=== PATIENT | male | born 1950 | race Caucasian/White ===

== ENCOUNTER 2018-09-02 11:51 | Emergency (ER) | payer MEDICARE, OTHER, SELFPAY ==
[2018-09-02 12:01] VITALS: BP 134/86; PULSE 80; RESP 18; TEMP 37.1; O2SAT 97
--- NOTE | 2018-09-02 12:06 | DI.RAD.S_ITS ---
PROCEDURE: XR HIP W PEL IF DONE LT 2V INDICATIONS: atraumatic left hip pain. TECHNIQUE: 2 views of the hip were acquired. COMPARISON: None. FINDINGS: Bones: No fractures or dislocations. No suspicious bony lesions. The visualized pelvic ring appears intact. Postoperative changes are present related to bilateral hip arthroplasties. No periprosthetic fractures are evident. The hardware appears to be intact. There are severe degenerative changes of the lower lumbar spine. Soft tissues: No suspicious soft tissue calcifications or masses. Multiple surgical clips are seen within the pelvis. IMPRESSION: 1. No acute left hip fracture. 2. Status post bilateral hip arthroplasties. Dictated by: Saleem Neal M.D. on 09/02/2018 at 12:04 Approved by: Saleem Neal M.D. on 09/02/2018 at 12:06
--- NOTE | 2018-09-02 14:17 | ED.EXTPRO ---
HPI - Extremity Problem General Chief complaint: Extremity Problem,Nontraumatic Stated complaint: Lt hip pain Time Seen by Provider: 09/02/18 14:15 Source: patient Mode of arrival: ambulatory Limitations: no limitations History of Present Illness HPI Narrative: The patient the 68-year-old male who presents with left hip pain. He has had arthritic pain in the past. He has got a Toradol shot in the past also Medrol Dosepak. He does take Eliquis for atrial fibrillation. But he has had Toradol in the past without any issue. He currently is sitting in a chair comfortably without any significant pain. He denies any sciatic pain numbness tingling or weakness in his leg. He has no injury. He is visiting from [place] he will be going back into the end of the month. MD Complaint: extremity pain Onset (ago): day(s) (4) Pain Consistency: intermittent Location: left and lower extremity (hip) Related Data Previous Rx's Medication Instructions Recorded methylprednisolone [Medrol (Avery)] See Rx Instructions .ROUTE 09/02/18 .COMPLEX #21 each Allergies Allergy/AdvReac Type Severity Reaction Status Date / Time No Known Drug Allergies Allergy Verified 09/02/18 12:05 Review of Systems Review of Systems GENERAL: Denies chills,fever HEENT: Denies throat pain RESPIRATORY: Denies dyspnea, cough, wheezing CARDIOVASCULAR: Denies chest pain, palpitations GASTROINTESTINAL: Denies nausea, vomiting MUSCULOSKELETAL: See HPI SKIN: No rash, no laceration, no pruritus NEUROLOGIC: Denies weakness, dizziness, headache, numbness 8 point review of systems is negative except for those stated above and HPI [facility] Medical History (Updated 09/02/18 @ 14:32 by Laura Mercer DO) Atrial fibrillation (Acute) Social History (Updated 09/02/18 @ 14:30 by Laura Mercer DO) marital status: Smoking Status: Never smoker Social History (Updated 09/02/18 @ 14:30 by Laura Mercer DO) marital status: Smoking Status: Never smoker Comment: Visiting from out of state Exam Initial Vital Signs Initial Vital Signs: Vital Signs Temperature 98.8 F 09/02/18 12:01 Pulse Rate 80 09/02/18 12:01 Respiratory Rate 18 09/02/18 12:01 Blood Pressure 134/86 09/02/18 12:01 Pulse Oximetry 97 09/02/18 12:01 GENERAL: Pleasant well-appearing male CARDIOVASCULAR: peripheral pulses in tact, cap refill <2 sec RESPIRATORY: No respiratory distress, speaks in full sentences without difficulty EXTREMITIES: Normal range of motion, no clubbing or edema. Neurovascularly intact Left hip no pain with internal external rotation NEUROLOGICAL: Cranial nerves II through XII grossly intact. Normal gait and speech. SKIN: Warm, dry, no petechiae, no rashes or lesions. Course Orders Ordered: ED Orders 09/02/18 12:06 XR hip w pel if done LT 2V Stat Discontinued Medications Ketorolac Tromethamine (Toradol) 30 mg IM NOW ONE Stop: 09/02/18 14:28 Last Admin: 09/02/18 14:50 Dose: 30 mg Vital Signs - 8 hr 09/02/18 12:01 09/02/18 15:03 Temperature 98.8 F Pulse Rate 80 88 Respiratory Rate 18 19 Blood Pressure 134/86 123/86 Pulse Oximetry 97 96 MDM - Extremity (Nontraumatic) Imaging Data left hip: Radiologist's impression: [address] [address] XRay Report Signed Patient: Guzman Roger#: [id number] : 1950Acct:[id number] Age/Sex: 68 / MDate of Service: 09/02/18 Loc: ED Accession Number: [id number] Procedure: XR hip w pel if done LT 2V Ordering Provider: Laura Mercer D.O. PROCEDURE: XR HIP W PEL IF DONE LT 2V INDICATIONS: atraumatic left hip pain. TECHNIQUE: 2 views of the hip were acquired. COMPARISON: None. FINDINGS: Bones: No fractures or dislocations. No suspicious bony lesions. The visualized pelvic ring appears intact. Postoperative changes are present related to bilateral hip arthroplasties. No periprosthetic fractures are evident. The hardware appears to be intact. There are severe degenerative changes of the lower lumbar spine. Soft tissues: No suspicious soft tissue calcifications or masses. Multiple surgical clips are seen within the pelvis. IMPRESSION: 1. No acute left hip fracture. 2. Status post bilateral hip arthroplasties. Dictated by: Saleem Neal M.D. on 09/02/2018 at 12:04 Approved by: Saleem Neal M.D. on 09/02/2018 at 12:0 MDM Narrative Medical decision making narrative: The patient is not having much pain now. However he still wants Toradol shot. I recommend he hold off taking the Medrol Dosepak until he has worsening pain. Which she agrees to. Discharge Plan Departure Patient Disposition: Home Clinical Impression: Arthritis of left hip Discharge Date/Time: 09/02/18 15:04 Interventions: ED Discharge Assessment Last Done: 09/02/18 15:03 Instructions: DI for Arthritis Activity Restrictions/Additional Instructions: *You have been diagnosed with left hip arthritis *What to do: Increased weakness, pain *Continue to take medications as directed Medrol Dosepak take as directed only needed for pain *Follow up with your primary care provider in 2-3 days *Return to ER if you should have increasing leg weakness persistent numbness or tingling or any new, worsening or concerning symptoms Prescriptions: New methylprednisolone [Medrol ([place]very)] 4 mg tablets,dose pack See Rx Instructions .ROUTE .COMPLEX Qty: 21 RF: 0
--- NOTE | 2018-09-02 14:19 | PC.NURSE ---
Pt reports sharp intermittent pain to left hip. Does report history of Hip replacement. States pain started on Wednesday. And happens with sharp pain to anterior hip towards pelvic area. Denies any numbness tingling. States when pain starts has to sit down and then pain states to calms down with rest.
--- NOTE | 2018-09-02 14:32 | ED_ITS ---
HPI - Extremity Problem General Chief complaint: Extremity Problem,Nontraumatic Stated complaint: Lt hip pain Time Seen by Provider: 09/02/18 14:15 Source: patient Mode of arrival: ambulatory Limitations: no limitations History of Present Illness HPI Narrative: The patient the 68-year-old male who presents with left hip pain. He has had arthritic pain in the past. He has got a Toradol shot in the past also Medrol Dosepak. He does take Eliquis for atrial fibrillation. But he has had Toradol in the past without any issue. He currently is sitting in a chair comfortably without any significant pain. He denies any sciatic pain numbness tingling or weakness in his leg. He has no injury. He is visiting from [place] he will be going back into the end of the month. MD Complaint: extremity pain Onset (ago): day(s) (4) Pain Consistency: intermittent Location: left and lower extremity (hip) Related Data Previous Rx's Medication Instructions Recorded methylprednisolone [Medrol ([place])] See Rx Instructions .ROUTE 09/02/18 .COMPLEX #21 each Allergies Allergy/AdvReac Type Severity Reaction Status Date / Time No Known Drug Allergies Allergy Verified 09/02/18 12:05 Review of Systems Review of Systems GENERAL: Denies chills,fever HEENT: Denies throat pain RESPIRATORY: Denies dyspnea, cough, wheezing CARDIOVASCULAR: Denies chest pain, palpitations GASTROINTESTINAL: Denies nausea, vomiting MUSCULOSKELETAL: See HPI SKIN: No rash, no laceration, no pruritus NEUROLOGIC: Denies weakness, dizziness, headache, numbness 8 point review of systems is negative except for those stated above and HPI [facility] Medical History (Updated 09/02/18 @ 14:32 by Laura Mercer DO) Atrial fibrillation (Acute) Social History (Updated 09/02/18 @ 14:30 by Laura Mercer DO) marital status: Smoking Status: Never smoker Social History (Updated 09/02/18 @ 14:30 by Laura Mercer DO) marital status: Smoking Status: Never smoker Comment: Visiting from [place] of state Exam Initial Vital Signs Initial Vital Signs: Vital Signs Temperature 98.8 F 09/02/18 12:01 Pulse Rate 80 09/02/18 12:01 Respiratory Rate 18 09/02/18 12:01 Blood Pressure 134/86 09/02/18 12:01 Pulse Oximetry 97 09/02/18 12:01 GENERAL: Pleasant well-appearing male CARDIOVASCULAR: peripheral pulses in tact, cap refill <2 sec RESPIRATORY: No respiratory distress, speaks in full sentences without difficulty EXTREMITIES: Normal range of motion, no clubbing or edema. Neurovascularly intact Left hip no pain with internal external rotation NEUROLOGICAL: Cranial nerves II through XII grossly intact. Normal gait and speech. SKIN: Warm, dry, no petechiae, no rashes or lesions. Course Orders Ordered: ED Orders 09/02/18 12:06 XR hip w pel if done LT 2V Stat Discontinued Medications Ketorolac Tromethamine (Toradol) 30 mg IM NOW ONE Stop: 09/02/18 14:28 Last Admin: 09/02/18 14:50 Dose: 30 mg Vital Signs - 8 hr 09/02/18 12:01 09/02/18 15:03 Temperature 98.8 F Pulse Rate 80 88 Respiratory Rate 18 19 Blood Pressure 134/86 123/86 Pulse Oximetry 97 96 MDM - Extremity (Nontraumatic) Imaging Data left hip: Radiologist's impression: [address] [address] XRay Report Signed Patient: Guzman Roger#: [id number] : 1950Acct:[id number] Age/Sex: 68 / MDate of Service: 09/02/18 Loc: ED Accession Number: [id number] Procedure: XR hip w pel if done LT 2V Ordering Provider: Laura Mercer D.O. PROCEDURE: XR HIP W PEL IF DONE LT 2V INDICATIONS: atraumatic left hip pain. TECHNIQUE: 2 views of the hip were acquired. COMPARISON: None. FINDINGS: Bones: No fractures or dislocations. No suspicious bony lesions. The visualized pelvic ring appears intact. Postoperative changes are present related to bilateral hip arthroplasties. No periprosthetic fractures are evident. The hardware appears to be intact. There are severe degenerative changes of the lower lumbar spine. Soft tissues: No suspicious soft tissue calcifications or masses. Multiple surgical clips are seen within the pelvis. IMPRESSION: 1. No acute left hip fracture. 2. Status post bilateral hip arthroplasties. Dictated by: Saleem Neal M.D. on 09/02/2018 at 12:04 Approved by: Saleem Neal M.D. on 09/02/2018 at 12:0 MDM Narrative Medical decision making narrative: The patient is not having much pain now. However he still wants Toradol shot. I recommend he hold off taking the Medrol Dosepak until he has worsening pain. Which she agrees to. Discharge Plan Departure Patient Disposition: Home Clinical Impression: Arthritis of left hip Discharge Date/Time: 09/02/18 15:04 Interventions: ED Discharge Assessment Last Done: 09/02/18 15:03 Instructions: DI for Arthritis Activity Restrictions/Additional Instructions: *You have been diagnosed with left hip arthritis *What to do: Increased weakness, pain *Continue to take medications as directed Medrol Dosepak take as directed only needed for pain *Follow up with your primary care provider in 2-3 days *Return to ER if you should have increasing leg weakness persistent numbness or tingling or any new, worsening or concerning symptoms Prescriptions: New methylprednisolone [Medrol ([place])] 4 mg tablets,dose pack See Rx Instructions .ROUTE .COMPLEX Qty: 21 RF: 0
[2018-09-02] MEDS: KETOROLAC 60 MG/2 ML VIAL 30 MG IM (14:50)
[2018-09-02 15:03] VITALS: BP 123/86; PULSE 88; RESP 19; O2SAT 96
== END 2018-09-02 15:04 | disposition home or self-care (01) ==
PROVIDERS: Emergency Provider Emergency Medicine
DX: M16.12 Unilateral primary osteoarthritis, left hip (principal); Z79.01 Long term (current) use of anticoagulants
CPT/HCPCS: 73502; 96372; 99282; 99283; J1885

== ENCOUNTER 2018-09-03 10:54 | Emergency (ER) | payer MEDICARE, OTHER, SELFPAY ==
[2018-09-03 11:05] VITALS: BP 123/80; PULSE 80; RESP 15; TEMP 36.5; O2SAT 100
[2018-09-03 11:11] VITALS: BP 123/80; PULSE 80; RESP 15; TEMP 36.5; O2SAT 100; BMI 32.1
--- NOTE | 2018-09-03 11:55 | ED.EXTPRO ---
HPI - Extremity Problem General Chief complaint: Extremity Problem,Nontraumatic Stated complaint: Lt leg extreme pain Time Seen by Provider: 09/03/18 11:14 Source: patient Mode of arrival: ambulatory Limitations: no limitations History of Present Illness HPI Narrative: Male who presents for the 2nd time with left hip pain. He has bilateral hip replacements. He is on Eliquis for atrial fibrillation he has significant arthritis of his spine. He was seen here yesterday with got a shot of Toradol and a Medrol dose pack per his request. States that typically the Medrol Dosepak helps. He started that yesterday. He took a [place] last night due to the pain he does not have any more [place] left. He has been quite uncomfortable. The pain is fairly constant but definitely gets worse. He denies numbness or tingling. The pain is really on his anterior thigh. He denies any midline back pain no changes with bowel or bladder habits. He denies any fever no frequent or painful urination. This feels like previous flare ups. He does have pain management back in [place]. MD Complaint: extremity pain Related Data Previous Rx's Medication Instructions Recorded methylprednisolone [Medrol ([place])] See Rx Instructions .ROUTE 09/02/18 .COMPLEX #21 each hydrocodone-acetaminophen [Trent] 1 tab PO Q4-6H PRN #14 tab 09/03/18 Allergies Allergy/AdvReac Type Severity Reaction Status Date / Time No Known Drug Allergies Allergy Verified 09/02/18 12:05 Review of Systems Review of Systems GENERAL: Denies chills, fatigue, malaise, fever, sweats, travel HEENT: Denies sinus pain, ear pain, sore throat, difficulty swallowing, neck pain RESPIRATORY: Denies dyspnea, cough, wheezing, hemoptysis, sputum. CARDIOVASCULAR: Denies chest pain, palpitations, orthopnea, edema GASTROINTESTINAL: Denies nausea, vomiting, abdominal pain, diarrhea, constipation, melena. : Denies dysuria, frequency, incontinence, hematuria, urinary retention, flank pain. MUSCULOSKELETAL: See HPI SKIN: No rash, no erythema, no pruritus NEUROLOGIC: Denies weakness, dizziness, headache, numbness, change in speech, confusion PSYCHIATRIC: No concerning psychosocial issues. 12 point review of systems is negative except for those stated above and HPI [facility] Medical History Atrial fibrillation (Acute) Social History (Updated 09/02/18 @ 14:30 by Laura Mercer DO) marital status: Smoking Status: Never smoker Social History marital status: Smoking Status: Never smoker Exam Initial Vital Signs Initial Vital Signs: Vital Signs Temperature 97.7 F 09/03/18 11:05 Pulse Rate 80 09/03/18 11:05 Respiratory Rate 15 09/03/18 11:05 Blood Pressure 123/80 09/03/18 11:05 Pulse Oximetry 100 09/03/18 11:05 GENERAL: Well-appearing, well-nourished and in no acute distress. HEENT: Head atraumatic,EOMI, pupils reactive, CARDIOVASCULAR: Peripheral pulses intact. Femoral pulse on left side is felt and strong RESPIRATORY: Speaks in full sentences without any difficulty no respiratory distress BACK: No vertebral tenderness no step-off, pain seems to be anterior thigh good femoral pulses felt. Sensation in lower extremities intact EXTREMITIES: Normal range of motion, no clubbing or edema. Neurovascularly intact NEUROLOGICAL: Alert and oriented x4.Normal gait and speech. Cranial nerves II through XII grossly intact. SKIN: Warm, dry, no laceration, no petechiae, no rashes or lesions. Course Vital Signs - 8 hr 09/03/18 11:05 09/03/18 11:11 Temperature 97.7 F 97.7 F Pulse Rate 80 80 Respiratory Rate 15 15 Blood Pressure 123/80 Blood Pressure [Right Arm] 123/80 Pulse Oximetry 100 100 MDM - Extremity (Nontraumatic) MDM Narrative Medical decision making narrative: At this time this is patient's pain that he has always felt. It seems to be in the anterior thigh. He is able to flex and extend his hip easily. At this time I do not think he has a psoas abscess or hematoma. He gets obvious spasms. At this time I have agreed to give him some [place] medication. He was offered a shot of morphine which he declined. He is on a Medrol Dosepak. I recommend that he follow up with his physicians in [place]. Discharge Plan Departure Patient Disposition: Home Clinical Impression: Arthritis of left hip Discharge Date/Time: 09/03/18 12:23 Interventions: ED Discharge Assessment Last Done: 09/03/18 12:22 Instructions: DI for Arthritis Activity Restrictions/Additional Instructions: *You have been diagnosed with all left hip pain, arthritis *What to do: Recommend that you follow up with your orthopedic surgeons in [place]. *Continue to take medications as directed [place] 1 tablet every 4 hours or 2 tablets every 6 hours *Follow up with your primary care provider in 2-3 days *Return to ER if you should have numbness tingling weakness in leg fever or any new, worsening or concerning symptoms CONTROLLED SUBSTANCE DISCHARGE (Narcotoic/benzodiazepine/Flexeril/Phenergan) 1. You have been prescribed narcotic medications, it does have acetaminophen/Tylenol/paracetamol in it so do not take extra Tylenol or Tylenol containing products 2. Please understand that we cannot provide further refills of narcotics, benzodiazepines or controlled substances through the ED and her pain management will need to be through your provider. 3. While on these medications you cannot drive or operate heavy machinery. 4. You cannot sign legal documents or perform any duties such as this. 5. As long as you're taking opiate pain medications he should also be taking a stool softener such as Colace, Dulcolax, MiraLAX or prune juice, to help avoid constipation. Prescriptions: New hydrocodone-acetaminophen [Trent] 5-325 mg tablet 1 tab PO Q4-6H PRN (Reason: pain) Qty: 14 RF: 0 No Action methylprednisolone [Medrol (Avery)] 4 mg tablets,dose pack See Rx Instructions .ROUTE .COMPLEX Qty: 21 RF: 0
--- NOTE | 2018-09-03 12:10 | ED_ITS ---
HPI - Extremity Problem General Chief complaint: Extremity Problem,Nontraumatic Stated complaint: Lt leg extreme pain Time Seen by Provider: 09/03/18 11:14 Source: patient Mode of arrival: ambulatory Limitations: no limitations History of Present Illness HPI Narrative: Male who presents for the 2nd time with left hip pain. He has bilateral hip replacements. He is on Eliquis for atrial fibrillation he has significant arthritis of his spine. He was seen here yesterday with got a shot of Toradol and a Medrol dose pack per his request. States that typically the Medrol Dosepak helps. He started that yesterday. He took a [place] last night due to the pain he does not have any more [place] left. He has been quite uncomfortable. The pain is fairly constant but definitely gets worse. He denies numbness or tingling. The pain is really on his anterior thigh. He denies any midline back pain no changes with bowel or bladder habits. He denies any fever no frequent or painful urination. This feels like previous flare ups. He does have pain management back in [place]. MD Complaint: extremity pain Related Data Previous Rx's Medication Instructions Recorded methylprednisolone [Medrol (Avery)] See Rx Instructions .ROUTE 09/02/18 .COMPLEX #21 each hydrocodone-acetaminophen [[place]] 1 tab PO Q4-6H PRN #14 tab 09/03/18 Allergies Allergy/AdvReac Type Severity Reaction Status Date / Time No Known Drug Allergies Allergy Verified 09/02/18 12:05 Review of Systems Review of Systems GENERAL: Denies chills, fatigue, malaise, fever, sweats, travel HEENT: Denies sinus pain, ear pain, sore throat, difficulty swallowing, neck pain RESPIRATORY: Denies dyspnea, cough, wheezing, hemoptysis, sputum. CARDIOVASCULAR: Denies chest pain, palpitations, orthopnea, edema GASTROINTESTINAL: Denies nausea, vomiting, abdominal pain, diarrhea, constipation, melena. : Denies dysuria, frequency, incontinence, hematuria, urinary retention, flank pain. MUSCULOSKELETAL: See HPI SKIN: No rash, no erythema, no pruritus NEUROLOGIC: Denies weakness, dizziness, headache, numbness, change in speech, confusion PSYCHIATRIC: No concerning psychosocial issues. 12 point review of systems is negative except for those stated above and HPI [facility] Medical History Atrial fibrillation (Acute) Social History (Updated 09/02/18 @ 14:30 by Laura Mercer DO) marital status: Smoking Status: Never smoker Social History marital status: Smoking Status: Never smoker Exam Initial Vital Signs Initial Vital Signs: Vital Signs Temperature 97.7 F 09/03/18 11:05 Pulse Rate 80 09/03/18 11:05 Respiratory Rate 15 09/03/18 11:05 Blood Pressure 123/80 09/03/18 11:05 Pulse Oximetry 100 09/03/18 11:05 GENERAL: Well-appearing, well-nourished and in no acute distress. HEENT: Head atraumatic,EOMI, pupils reactive, CARDIOVASCULAR: Peripheral pulses intact. Femoral pulse on left side is felt and strong RESPIRATORY: Speaks in full sentences without any difficulty no respiratory distress BACK: No vertebral tenderness no step-off, pain seems to be anterior thigh good femoral pulses felt. Sensation in lower extremities intact EXTREMITIES: Normal range of motion, no clubbing or edema. Neurovascularly intact NEUROLOGICAL: Alert and oriented x4.Normal gait and speech. Cranial nerves II through XII grossly intact. SKIN: Warm, dry, no laceration, no petechiae, no rashes or lesions. Course Vital Signs - 8 hr 09/03/18 11:05 09/03/18 11:11 Temperature 97.7 F 97.7 F Pulse Rate 80 80 Respiratory Rate 15 15 Blood Pressure 123/80 Blood Pressure [Right Arm] 123/80 Pulse Oximetry 100 100 MDM - Extremity (Nontraumatic) MDM Narrative Medical decision making narrative: At this time this is patient's pain that he has always felt. It seems to be in the anterior thigh. He is able to flex and extend his hip easily. At this time I do not think he has a psoas abscess or hematoma. He gets obvious spasms. At this time I have agreed to give him some [place] medication. He was offered a shot of morphine which he declined. He is on a Medrol Dosepak. I recommend that he follow up with his physicians in [place]. Discharge Plan Departure Patient Disposition: Home Clinical Impression: Arthritis of left hip Discharge Date/Time: 09/03/18 12:23 Interventions: ED Discharge Assessment Last Done: 09/03/18 12:22 Instructions: DI for Arthritis Activity Restrictions/Additional Instructions: *You have been diagnosed with all left hip pain, arthritis *What to do: Recommend that you follow up with your orthopedic surgeons in [place]. *Continue to take medications as directed [place] 1 tablet every 4 hours or 2 tablets every 6 hours *Follow up with your primary care provider in 2-3 days *Return to ER if you should have numbness tingling weakness in leg fever or any new, worsening or concerning symptoms CONTROLLED SUBSTANCE DISCHARGE (Narcotoic/benzodiazepine/Flexeril/Phenergan) 1. You have been prescribed narcotic medications, it does have acetaminophen/Tylenol/paracetamol in it so do not take extra Tylenol or Tylenol containing products 2. Please understand that we cannot provide further refills of narcotics, benzodiazepines or controlled substances through the ED and her pain management will need to be through your provider. 3. While on these medications you cannot drive or operate heavy machinery. 4. You cannot sign legal documents or perform any duties such as this. 5. As long as you're taking opiate pain medications he should also be taking a stool softener such as Colace, Dulcolax, MiraLAX or prune juice, to help avoid constipation. Prescriptions: New hydrocodone-acetaminophen [[place]] 5-325 mg tablet 1 tab PO Q4-6H PRN (Reason: pain) Qty: 14 RF: 0 No Action methylprednisolone [Medrol (Avery)] 4 mg tablets,dose pack See Rx Instructions .ROUTE .COMPLEX Qty: 21 RF: 0
== END 2018-09-03 12:23 | disposition home or self-care (01) ==
PROVIDERS: Emergency Provider Emergency Medicine
DX: M16.12 Unilateral primary osteoarthritis, left hip (principal); Z79.01 Long term (current) use of anticoagulants
CPT/HCPCS: 99282; 99283